=== PATIENT | female | born 1985 | race Caucasian/White ===

== ENCOUNTER 2020-04-11 14:41 | Outpatient (REF) | payer MEDICAID, SELFPAY ==
[2020-04-11 17:03] LABS: Basophils Absolute Auto 0.1 X10*3/uL (0.0-0.2); Basophils Percent Auto 0.6 % (0-2); Eosinophils Absolute Auto 0.2 X10*3/uL (0.0-0.4); Eosinophils Percent Auto 2.5 % (0-4); Hematocrit 35.7 % (37-47); Hemoglobin 11.1 g/dl (12.0-16.0); Imm Gran Abs Auto 0.05 X10*3/uL (0.00-0.03); Imm Gran Pct Auto 0.6 % (0.0-0.4); Lymphocytes Absolute Auto 2.7 X10*3/uL (1.2-4.9); MANUAL DIFF FLAG NO; Mean Corpuscular HGB Conc 31.1 g/dl (31.0-35.0); Mean Corpuscular Volume 80.4 fL (80-98); Mean Platelet Volume 10.1 fL (9.4-12.3); Monocytes Absolute Auto 0.7 X10*3/uL (0.1-1.2); Monocytes Percent Auto 7.9 % (2-11); Neutrophils Absolute Auto 5.3 X10*3/uL (2.0-8.3); Neutrophils Percent Auto 58.4 % (45-73); Platelet Count 376 X10*3/uL (160-400); Red Blood Count 4.44 X10*6/uL (4.20-5.50)
[2020-04-11 17:43] LABS: TSH reflex Free T4 1.72 mIU/mL (0.32-4.0)
[2020-04-12 10:59] LABS: CT PCR NOT DETECTED (Not Detect.); NG PCR NOT DETECTED (Not Detect.)
[2020-04-12 12:19] LABS: BV Int Neg Control Negative (Negative); BV Int Pos Control Positive (Positive)
== END 2020-04-11 14:42 | disposition home or self-care (01) ==
LOC: HO.LAB 14:41
PROVIDERS: PCP Internal Medicine; Visit Provider Obstetrics & Gynecology
DX: N93.9 Abnormal uterine and vaginal bleeding, unspecified (principal)
CPT/HCPCS: 36415; 84443; 85025; 87480; 87491; 87510; 87591; 87660; 88305; 99214; 99215

== ENCOUNTER → 2020-04-25 11:06 | Outpatient (BNVA) | payer MEDICAID, SELFPAY | PROVIDERS: Visit Provider Obstetrics & Gynecology | DX: N93.9 Abnormal uterine and vaginal bleeding, unspecified (principal); D64.9 Anemia, unspecified; Z98.890 Other specified postprocedural states | CPT/HCPCS: 99213 ==

== ENCOUNTER 2020-08-13 20:17 | Emergency (ER) | payer MEDICAID, SELFPAY ==
--- NOTE | 2020-08-13 | ECG_ITS ---
Test Reason : CP Blood Pressure : / mmHG Vent. Rate : 099 BPM Atrial Rate : 099 BPM P-R Int : 164 ms QRS Dur : 084 ms QT Int : 362 ms P-R-T Axes : 045 049 028 degrees QTc Int : 464 ms Normal sinus rhythm Normal ECG When compared with ECG of 05-JUL-2019 16:34, No significant change was found Referred By: Generic ED Physician Electronically Signed By:Ricardo Samano
--- NOTE | ~2020-08-13 | XR_ITS ---
EXAMINATION: XR CHEST CLINICAL INFORMATION: Shortness of breath, chest pressure. COMPARISON: Chest radiograph dated 07/05/2019. TECHNIQUE: Frontal view of the chest was obtained. FINDINGS: The lungs are clear. The cardiomediastinal silhouette is normal in size. There is no pleural effusion or pneumothorax. No acute osseous abnormality. XR/XR chest 1V IMPRESSION: No acute cardiopulmonary findings.
--- NOTE | 2020-08-13 20:22 | ED.URI ---
HPI - URI/Sore Throat General Chief Complaint: Dyspnea Stated Complaint: Covid Symptoms Source: patient Mode of arrival: ambulatory Limitations: no limitations History of Present Illness HPI Narrative: 35-year-old female with past medical history of asthma presents with 3 days of upper respiratory symptoms and 1 day of chest tightness and pressure. She states to have a cough, malaise, the subjective fevers, chills, and wheezing. MD elicited complaint: fever, cough and nasal congestion Pertinent past history: asthma Onset (ago): day(s) (3) Consistency: constant Severity: moderate Description of mucous: clear Able to tolerate fluids by mouth: Yes Exacerbating factors: exertion and deep breaths Relieving factors: nothing Associated symptoms: fever, chills, myalgias, headache, rhinorrhea, nasal congestion and cough Related Data Home Medications Medication Instructions Recorded Confirmed albuterol sulfate 90 mcg/actuation 2 puff INHALATION Q4-6H PRN 04/11/20 aerosol inhaler ibuprofen 800 mg tablet 800 mg PO TID 04/11/20 Previous Rx's Medication Instructions Recorded azithromycin 250 mg PO DAILY 4 Days #4 tab 08/13/20 Allergies Allergy/AdvReac Type Severity Reaction Status Date / Time banana [BANANA] Allergy Severe ANAPHYLAXIS Verified 04/11/20 14:48 mathew Allergy Severe ANAPHYLAXIS Verified 04/11/20 14:48 peach [PEACH] Allergy Severe ANAPHYLAXIS Verified 04/11/20 14:48 walnut [WALNUT] Allergy Severe ANAPHYLAXIS Verified 04/11/20 14:48 cat dander Allergy Unknown Hives Verified 04/11/20 14:48 Review of Systems Review of Systems: Constitutional: positive Fever, positive Chills, positive fatigue, positive Malaise ENT/Mouth: No sore throat, no runny nose Eyes: No Discharge Cardiovascular: Positive Chest Pain, No SOB Respiratory: Positive Cough, No Sputum, positive Wheezing, No Smoke Exposure, No Dyspnea Gastrointestinal: No Nausea, No Vomiting, No Diarrhea Genitourinary: no irregular bleeding, No Dysuria, No Urinary Frequency, No Hematuria, No Urinary Incontinence, No Urgency, No Flank Pain, Musculoskeletal: positive Myalgia Skin: No rash Neuro: Positive Headache Yes all other systems are reviewed and are negative PMFSH Past Medical History Attestation statement: The following information was validated with the patient. Source: old records reviewed Medical History History of ectopic Surgical History History of ovarian cystectomy Hx of section Hx of dilation and curettage Family History Family History Father History of colon cancer Hx of glaucoma Mother Hypertension Hx of chronic arthritis Maternal Grandmother Hx of human immunodeficiency virus infection Maternal Grandfather Hx of cardiovascular disorder Paternal Grandmother Hx of chronic arthritis History of anemia Social History Social History Alcohol intake: current Alcohol intake frequency: a few times a month Smoking Status: Never smoker Smoked in Last 30 Days: No Use of substances other than those prescribed or required for medical reasons: No Advance Directives: No Advance Directives Information Provided: No Gender identity: female Physical Exam Vital Signs: Vital Signs: Last Vital Signs Temp 97.8 F 08/13/20 20:29 Pulse 88 08/13/20 22:00 Resp 18 08/13/20 22:00 BP 131/68 08/13/20 22:00 Pulse Ox 100 08/13/20 22:00 Body Mass Index 34.3 Appearance: Alert. Oriented X3. Mild distress. Appears fatigued Eyes: Pupils equal, round and reactive to light. ENT: Pharynx normal. Neck: Normal inspection. Neck supple. CVS: Tachycardic heart rate and rhythm. Pulses normal. Respiratory: No respiratory distress. Breath sounds normal. Abdomen: Soft and nontender. Skin: Skin warm and dry. Normal skin color. Normal skin turgor. Extremities: No lower extremity edema. Neuro: No motor deficit. No sensory deficit. Course Course Course Narrative: 35-year-old female with past medical history of asthma presents with 3 days of upper respiratory symptoms and 1 day of chest tightness and pressure. Plan of care ACS rule out chest x-ray, COVID-19 testing. At 9:12 p.m. H&H 10.8/35.7 which is consistent with prior lab values dating back to 2019. Re-evaluation at 10:00 p.m.. Patient updated on all lab values and negative COVID test. Patient does have a history of asthma, recurrent bronchitis, plan to treat with azithromycin. Patient verbalized understanding of and agrees to plan of care discharge home MDM - URI/Sore Throat Differential Diagnosis Differential diagnosis: Likely upper respiratory infection, viral infection, bronchitis and influenza Medical Records Attestation: I reviewed the patient's medical records. Lab Data Attestation: I reviewed the patient's lab results. Result diagrams: 08/13/20 20:50 08/13/20 20:50 Labs: Lab Results 08/13/20 08/13/20 08/13/20 Range/Units 20:43 20:50 20:50 WBC 10.3 (4.8-10.8) X10*3/uL RBC 4.57 (4.20-5.50) X10*6/uL Hgb 10.8 L (12.0-16.0) g/dl Hct 35.7 L (37-47) % MCV 78.1 L (80-98) fL MCH 23.6 L (27.0-33.0) pg MCHC 30.3 L (31.0-35.0) g/dl RDW 14.6 (11.0-16.0) % Plt Count 329 (160-400) X10*3/uL MPV 9.4 (9.4-12.3) fL Immature Gran % (Auto) 0.5 H (0.0-0.4) % Neut % (Auto) 65.1 (45-73) % Lymph % (Auto) 23.3 (20-40) % [place] % (Auto) 8.6 (2-11) % Eos % (Auto) 2.2 (0-4) % Baso % (Auto) 0.3 (0-2) % Lymph # (Auto) 2.4 (1.2-4.9) X10*3/uL [place] # (Auto) 0.9 (0.1-1.2) X10*3/uL Eos # (Auto) 0.2 (0.0-0.4) X10*3/uL Baso # (Auto) 0.0 (0.0-0.2) X10*3/uL Abs Immat Gran (auto) 0.05 H (0.00-0.03) X10*3/uL Absolute Neuts (auto) 6.7 (2.0-8.3) X10*3/uL Absolute Nucleated RBC 0.000 (0.0-0.012) X10*3/uL Nucleated RBC % (auto) 0.0 (0.0-0.2) /100WBC PT 12.8 (10.8-13.0) SEC INR 1.1 (0.9-1.1) APTT 36.8 (24.1-38.0) SEC Sodium (135-145) mmol/L Potassium (3.3-5.1) mmol/L Chloride (96-108) mmol/L Carbon Dioxide (22-29) mmol/L Anion Gap (12-20) BUN (9-16) mg/dL Creatinine (0.5-1.4) mg/dL Estim Creat Clear Calc Estimated GFR Random Glucose (60-115) mg/dL Calcium (8.4-10.2) mg/dL Troponin I High Sens (<3.5-17.0) ng/L Coronavirus (PCR) NEGATIVE (Negative) Influenza Type A (PCR) NEGATIVE (Negative) Influenza Type B (PCR) NEGATIVE (Negative) RSV RNA Qual (PCR) NEGATIVE (Negative) 08/13/20 08/13/20 Range/Units 20:50 20:50 WBC (4.8-10.8) X10*3/uL RBC (4.20-5.50) X10*6/uL Hgb (12.0-16.0) g/dl Hct (37-47) % MCV (80-98) fL MCH (27.0-33.0) pg MCHC (31.0-35.0) g/dl RDW (11.0-16.0) % Plt Count (160-400) X10*3/uL MPV (9.4-12.3) fL Immature Gran % (Auto) (0.0-0.4) % Neut % (Auto) (45-73) % Lymph % (Auto) (20-40) % [place] % (Auto) (2-11) % Eos % (Auto) (0-4) % Baso % (Auto) (0-2) % Lymph # (Auto) (1.2-4.9) X10*3/uL [place] # (Auto) (0.1-1.2) X10*3/uL Eos # (Auto) (0.0-0.4) X10*3/uL Baso # (Auto) (0.0-0.2) X10*3/uL Abs Immat Gran (auto) (0.00-0.03) X10*3/uL Absolute Neuts (auto) (2.0-8.3) X10*3/uL Absolute Nucleated RBC (0.0-0.012) X10*3/uL Nucleated RBC % (auto) (0.0-0.2) /100WBC PT (10.8-13.0) SEC INR (0.9-1.1) APTT (24.1-38.0) SEC Sodium 138 (135-145) mmol/L Potassium 3.8 (3.3-5.1) mmol/L Chloride 104 (96-108) mmol/L Carbon Dioxide 26 (22-29) mmol/L Anion Gap 12 (12-20) BUN 7 L (9-16) mg/dL Creatinine 0.70 (0.5-1.4) mg/dL Estim Creat Clear Calc 121.2 Estimated GFR > 60 Random Glucose 94 (60-115) mg/dL Calcium 8.6 (8.4-10.2) mg/dL Troponin I High Sens < 3.5 (<3.5-17.0) ng/L Coronavirus (PCR) (Negative) Influenza Type A (PCR) (Negative) Influenza Type B (PCR) (Negative) RSV RNA Qual (PCR) (Negative) Imaging Data Chest x-ray: Attestation: I personally reviewed and interpreted this imaging study as follows: Radiologist's impression: EXAMINATION: XR CHEST CLINICAL INFORMATION: Shortness of breath, chest pressure. COMPARISON: Chest radiograph dated 07/05/2019. TECHNIQUE: Frontal view of the chest was obtained. FINDINGS: The lungs are clear. The cardiomediastinal silhouette is normal in size. There is no pleural effusion or pneumothorax. No acute osseous abnormality. XR/XR chest 1V IMPRESSION: No acute cardiopulmonary findings. ECG Data Attestation: I personally reviewed and interpreted this ECG as follows: ECG interpretation date: 08/13/20 ECG interpretation time: 20:26 Prior ECG tracings: available for review Interpretation: Vent. rate 101 BPM NV interval 160 ms QRS duration 90 ms QT/QTc 348/451 ms P-R-T axes 57 -2 43 Normal sinus rhythm Normal ECG When compared with ECG of 05-JUL-2019 16:34, No significant change was found Discharge Plan Discharge Clinical Impression: URI (upper respiratory infection) Qualifiers: URI type: unspecified URI Qualified Code(s): J06.9 - Acute upper respiratory infection, unspecified Patient Disposition: Home, Self-Care Instructions: Upper Respiratory Infection (ED) Additional Instructions: You were evaluated for upper respiratory symptoms. Your COVID-19 test was negative. Chest x-ray was negative for acute findings requiring emergent intervention. Please continue to take azithromycin as prescribed. Take Tylenol and Motrin as needed for pain management and fever control. Thank you for choosing this emergency department for evaluation. Please follow-up with primary care physician as needed. Return to the emergency department for any new, concerning, or worsening symptoms. Prescriptions: New azithromycin 250 mg tablet 250 mg PO DAILY 4 Days Qty: 4 RF: 0
[2020-08-13 20:29] VITALS: BP 142/87; PULSE 96; RESP 18; TEMP 36.6; O2SAT 100; BMI 34.3
[2020-08-13 20:56] LABS: MANUAL DIFF FLAG NO
[2020-08-13 20:57] LABS: Basophils Percent Auto 0.3 % (0-2); Eosinophils Absolute Auto 0.2 X10*3/uL (0.0-0.4); Eosinophils Percent Auto 2.2 % (0-4); Hematocrit 35.7 % (37-47); Hemoglobin 10.8 g/dl (12.0-16.0); Imm Gran Abs Auto 0.05 X10*3/uL (0.00-0.03); Imm Gran Pct Auto 0.5 % (0.0-0.4); Lymphocytes Absolute Auto 2.4 X10*3/uL (1.2-4.9); Lymphocytes Percent Auto 23.3 % (20-40); Mean Corpuscular HGB Conc 30.3 g/dl (31.0-35.0); Mean Corpuscular Hemoglobin 23.6 pg (27.0-33.0); Mean Corpuscular Volume 78.1 fL (80-98); Mean Platelet Volume 9.4 fL (9.4-12.3); Monocytes Absolute Auto 0.9 X10*3/uL (0.1-1.2); Monocytes Percent Auto 8.6 % (2-11); Neutrophils Absolute Auto 6.7 X10*3/uL (2.0-8.3); Neutrophils Percent Auto 65.1 % (45-73); Platelet Count 329 X10*3/uL (160-400); Red Blood Count 4.57 X10*6/uL (4.20-5.50); Red Cell Distribution Width 14.6 % (11.0-16.0); White Blood Count 10.3 X10*3/uL (4.8-10.8)
[2020-08-13 21:07] LABS: INTERNATIONAL NORM RATIO 1.1 (0.9-1.1); Prothrombin Time 12.8 SEC (10.8-13.0)
[2020-08-13 21:09] LABS: Partial Thromboplastin Time 36.8 SEC (24.1-38.0)
[2020-08-13 21:16] LABS: Anion Gap 12 (12-20); Blood Urea Nitrogen 7 mg/dL (9-16); Calcium 8.6 mg/dL (8.4-10.2); Carbon Dioxide 26 mmol/L (22-29); Chloride 104 mmol/L (96-108); Creatinine Clr Calc Pharmacy 121.2; Estimated Glomerular Filt Rate > 60; Glucose Random 94 mg/dL (60-115); Potassium 3.8 mmol/L (3.3-5.1); Sodium 138 mmol/L (135-145)
[2020-08-13 21:22] LABS: Troponin-I High Sensitivity < 3.5 ng/L (<3.5-17.0)
[2020-08-13 21:41] LABS: Influenza A PCR NEGATIVE (Negative); Influenza B PCR NEGATIVE (Negative); Resp Syncy Virus RNA Qual PCR NEGATIVE (Negative); SARS COV2 PCR INHOUSE NEGATIVE (Negative)
[2020-08-13 22:00] VITALS: BP 131/68; PULSE 88; RESP 18; O2SAT 100
[2020-08-13] MEDS: Azithromycin 500 MG TABLET PO (22:29)
== END 2020-08-13 22:37 | disposition home or self-care (01) ==
PROVIDERS: Nurse Practitioner Family; Emergency Provider Emergency Medicine
DX: J06.9 Acute upper respiratory infection, unspecified (principal); R06.00 Dyspnea, unspecified; R50.9 Fever, unspecified; R05 Cough; R51.9 Headache, unspecified; Z20.822 Contact with and (suspected) exposure to COVID-19; Z79.899 Other long term (current) drug therapy
CPT/HCPCS: 0241U; 36415; 71045; 80048; 84484; 85025; 85610; 85730; 93005; 99283; 99284

== ENCOUNTER 2020-11-30 13:04 | Outpatient (REF) | payer MEDICAID, SELFPAY ==
--- NOTE | ~2020-11-30 | US_ITS ---
EXAMINATION: US PELVIS COMPLETE US PELVIS TRANSVAGINAL CLINICAL INFORMATION: Abnormal bleeding. LMP 11/12/2020. COMPARISON: Most recent pelvic ultrasound dated 06/03/2016. TECHNIQUE: Transabdominal and transvaginal imaging were performed. FINDINGS: The uterus is of normal size and echogenicity measuring 8.2 x 4.1 x 5.6 cm. A regular homogeneous endometrium is identified measuring 0.9 cm. The right ovary measures 5.6 x 4.5 x 9.1 cm for a volume of 119.9 mL. There is a complex right adnexal cyst with both cystic and solid components measuring 3.2 x 2.2 x 3.5 cm. A similar-appearing cyst was seen on the ultrasound from 2015 measuring 2.9 x 2.6 x 2.7 cm. An additional, simple-appearing cyst is seen within the right adnexa measuring 3.6 x 3.2 x 3.7 cm. Findings may represent an exophytic right ovarian cyst. The left ovary is seen immediately adjacent to this cyst and a left ovarian origin could be considered. The left ovary measures 3.7 x 2.4 x 2.6 cm for a volume of 12.1 mL. There is no pelvic free fluid. US/US transvaginal IMPRESSION: 1. Complex right ovarian cyst with cystic and solid components measuring up to 3.5 cm. A similar-appearing complex cyst was seen on the pelvic ultrasound dated 2015 measuring up to 2.9 cm. 2. Additional simple-appearing cyst in the right adnexa measuring up to 3.7 cm. This appears to abut the left ovary and may represent either a simple right or left ovarian cyst. 3. Sonographically unremarkable uterus and endometrium.
--- NOTE | ~2020-11-30 | US_ITS ---
EXAMINATION: US PELVIS COMPLETE US PELVIS TRANSVAGINAL CLINICAL INFORMATION: Abnormal bleeding. LMP 11/12/2020. COMPARISON: Most recent pelvic ultrasound dated 06/03/2016. TECHNIQUE: Transabdominal and transvaginal imaging were performed. FINDINGS: The uterus is of normal size and echogenicity measuring 8.2 x 4.1 x 5.6 cm. A regular homogeneous endometrium is identified measuring 0.9 cm. The right ovary measures 5.6 x 4.5 x 9.1 cm for a volume of 119.9 mL. There is a complex right adnexal cyst with both cystic and solid components measuring 3.2 x 2.2 x 3.5 cm. A similar-appearing cyst was seen on the ultrasound from 2015 measuring 2.9 x 2.6 x 2.7 cm. An additional, simple-appearing cyst is seen within the right adnexa measuring 3.6 x 3.2 x 3.7 cm. Findings may represent an exophytic right ovarian cyst. The left ovary is seen immediately adjacent to this cyst and a left ovarian origin could be considered. The left ovary measures 3.7 x 2.4 x 2.6 cm for a volume of 12.1 mL. There is no pelvic free fluid. US/US pelvic complete IMPRESSION: 1. Complex right ovarian cyst with cystic and solid components measuring up to 3.5 cm. A similar-appearing complex cyst was seen on the pelvic ultrasound dated 2015 measuring up to 2.9 cm. 2. Additional simple-appearing cyst in the right adnexa measuring up to 3.7 cm. This appears to abut the left ovary and may represent either a simple right or left ovarian cyst. 3. Sonographically unremarkable uterus and endometrium.
== END 2020-11-30 13:05 | disposition home or self-care (01) ==
LOC: HO.US 13:04
PROVIDERS: PCP Internal Medicine; Visit Provider Obstetrics & Gynecology
DX: N93.9 Abnormal uterine and vaginal bleeding, unspecified (principal)
CPT/HCPCS: 76830; 76856

== ENCOUNTER → 2020-12-06 10:51 | Outpatient (BNVA) | payer MEDICAID, SELFPAY | PROVIDERS: PCP Internal Medicine; Visit Provider Obstetrics & Gynecology ==

== ENCOUNTER 2020-12-13 13:24 | Outpatient (REF) | payer MEDICAID, SELFPAY ==
--- NOTE | ~2020-12-13 | MR_ITS ---
EXAMINATION: MR PELVIS WITHOUT AND WITH CONTRAST CLINICAL INFORMATION: Right ovarian cyst. COMPARISON: Previous pelvic ultrasound exams, most recent 11/30/2020 TECHNIQUE: Sagittal, axial and coronal sequences through the pelvis were performed with and without contrast. The patient received 10 mL intravenous gadolinium contrast. FINDINGS: The uterus appears slightly anteverted and retroflexed and measures 10 x 4.6 x 6 cm in sagittal, AP and transverse dimension. No focal uterine lesion is seen. Endometrial thickness is normal measuring 1 cm. The junctional zone does not appear thickened. There are small nabothian cysts in the cervix. The cervix is otherwise unremarkable. Both ovaries are superior to the uterus. There is a 3.4 x 3.2 x 3.6 cm simple left ovarian cyst. This is exophytic and superior medial to the left ovary and extends toward the midline. There are 2 right ovarian cysts. There is a 3.3 x 3.4 cm right adnexal cyst. This is low signal on T1-weighted sequences, primarily high signal on T2-weighted sequences with small medial area of low signal wall irregularity appreciated on T2-weighted sequences and demonstrates no evidence of enhancement. This is medial and superior to the right ovary and extends toward the midline. The area of wall irregularity appears smaller than expected compared to previous ultrasound. There is a 1.8 x 2 x 2 cm simple more superior right adnexal cyst. There areas of signal loss seen in the lower anterior abdominal wall and along the anterior wall of the uterus probably related to previous surgery, probably a section. Bladder is normal. No ascites or adenopathy is seen. Visualized bowel is normal. There is degenerative disc disease at L5-S1. MR/MR pelvis wo/w con IMPRESSION: Both ovaries are high in the pelvis superior to the uterus. There are bilateral adnexal cysts, 2 on the right and 1 on the left. Two cysts represent simple cysts. The third cyst represents a minimally complex cyst with area of low signal adjacent to the medial wall and no evidence of enhancement. The area of wall irregularity appears smaller than seen on prior ultrasound 11/30/2020.
[2020-12-13 16:08] LABS: Blood Urea Nitrogen 13 mg/dL (9-16); Estimated Glomerular Filt Rate > 60
[2020-12-13 16:17] LABS: HCG Quantitative < 2 mIU/mL
[2020-12-14 10:36] LABS: CA-125 38 U/mL (<35)
[2020-12-15 13:47] LABS: Alpha Fetoprotein 4.1 ng/mL
== END 2020-12-13 13:25 | disposition home or self-care (01) ==
LOC: HO.MRI 13:24
PROVIDERS: PCP Internal Medicine; Referring Provider Obstetrics & Gynecology; Visit Provider Obstetrics & Gynecology
DX: N83.291 Other ovarian cyst, right side (principal)
CPT/HCPCS: 36415; 72197; 82105; 82565; 84520; 84702; 86304; A9585

== ENCOUNTER → 2020-12-27 09:29 | Outpatient (BNVA) | payer MEDICAID, SELFPAY | PROVIDERS: Visit Provider Obstetrics & Gynecology | DX: N83.291 Other ovarian cyst, right side (principal); N93.9 Abnormal uterine and vaginal bleeding, unspecified | CPT/HCPCS: 99212 ==

== ENCOUNTER 2022-02-25 10:57 | Emergency (ER) | payer MEDICAID, SELFPAY ==
--- NOTE | ~2022-02-25 | XR_ITS ---
EXAMINATION: XR CHEST CLINICAL INFORMATION: Pleuritic chest pain, cough. COMPARISON: Chest radiograph 08/13/2020. TECHNIQUE: Frontal view of the chest was obtained. FINDINGS: No significant abnormality is noted involving the heart, lungs, mediastinum, bony thorax or soft tissues. XR/XR chest 1V IMPRESSION: Unremarkable examination.
[2022-02-25 11:00] VITALS: BP 122/73; PULSE 100; RESP 18; TEMP 35.9; O2SAT 98; BMI 34.6
--- NOTE | 2022-02-25 11:02 | ECG_ITS ---
Test Reason : chest pain Blood Pressure : / mmHG Vent. Rate : 099 BPM Atrial Rate : 099 BPM P-R Int : 162 ms QRS Dur : 080 ms QT Int : 356 ms P-R-T Axes : 019 030 013 degrees QTc Int : 456 ms Normal sinus rhythm Normal ECG When compared with ECG of 13-AUG-2020 20:26, No significant change was found Referred By: Generic ED Physician Electronically Signed By:ELI RHODES
[2022-02-25 11:11] LABS: MANUAL DIFF FLAG NO
[2022-02-25 11:13] LABS: Basophils Percent Auto 0.3 % (0-2); Eosinophils Absolute Auto 0.1 X10*3/uL (0.0-0.4); Eosinophils Percent Auto 1.3 % (0-4); Hematocrit 36.6 % (37.0-47.0); Hemoglobin 11.9 g/dl (12.0-16.0); Imm Gran Abs Auto 0.05 X10*3/uL (0.00-0.03); Imm Gran Pct Auto 0.6 % (0.0-0.4); Lymphocytes Percent Auto 22.9 % (20-40); Mean Corpuscular HGB Conc 32.5 g/dl (31.0-35.0); Mean Corpuscular Hemoglobin 26.2 pg (27.0-33.0); Mean Corpuscular Volume 80.6 fL (80.0-98.0); Mean Platelet Volume 9.4 fL (9.4-12.3); Monocytes Absolute Auto 0.7 X10*3/uL (0.1-1.2); Monocytes Percent Auto 8.3 % (2-11); Neutrophils Absolute Auto 5.7 x10*3/uL (2.0-8.3); Neutrophils Percent Auto 66.6 % (45-73); Platelet Count 245 X10*3/uL (160-400); Red Blood Count 4.54 X10*6/uL (4.20-5.50); Red Cell Distribution Width 13.6 % (11.0-16.0); White Blood Count 8.6 X10*3/uL (4.8-10.8)
[2022-02-25 11:21] LABS: COVID-19 Test Positive (Negative)
[2022-02-25 11:35] LABS: Alanine Aminotransferase 18 U/L (0-31); Albumin Level 4.3 g/dL (3.5-5.0); Alkaline Phosphatase 60 U/L (39-117); Anion Gap 15 (12-20); Aspartate Amino Transferase 15 U/L (5-31); Bilirubin Total 0.5 mg/dL (0.0-1.0); Blood Urea Nitrogen 11 mg/dL (9-16); Calcium 8.7 mg/dL (8.4-10.2); Carbon Dioxide 23 mmol/L (22-29); Chloride 105 mmol/L (96-108); Creatinine Clr Calc Pharmacy 115.4; Estimated Glomerular Filt Rate > 60; Glucose Random 112 mg/dL (60-115); Potassium 3.8 mmol/L (3.3-5.1); Sodium 139 mmol/L (135-145); Total Protein 7.4 g/dL (6.5-8.0)
--- NOTE | 2022-02-25 11:41 | ED.GENADULT ---
HPI - General Adult General Chief complaint: Dyspnea Stated complaint: COVID+/Difficulty breathing Time Seen by Provider: 02/25/22 11:42 Source: patient Mode of arrival: ambulatory Limitations: no limitations History of Present Illness HPI narrative: Patient is a 37 year old female presenting to the emergency department today with COVID-19 and shortness of breath. Patient states that she tested positive on a home test yesterday and feels like today she is somewhat more short of breath. Patient states that she has a history of asthma but is not currently on any medications for it. Patient denies any dizziness, lightheadedness, abdominal pain, nausea, vomiting, fever, chills, blurry vision, double vision, loss of vision, chest pain, back pain, night sweats, pain with urination, increased urinary frequency, increased urinary urgency, blood in her urine or stool, syncope or a near syncopal episode, recent trauma or falls, bowel incontinence, bladder incontinence, bowel retention, bladder retention, or any other complaints at this time. Onset (ago): day(s) (1) Severity: mild Severity scale (1-10): 3 Relieving factors: none Exacerbating factors: none Associated symptoms: shortness of breath Treatments prior to arrival: none Related Data Home Medications Medication Instructions Recorded Confirmed albuterol sulfate 90 mcg/actuation 2 puff inhalation Q4-6H PRN 04/11/20 aerosol inhaler (ProAir HFA) ibuprofen 800 mg tablet 800 mg PO TID 04/11/20 Previous Rx's Medication Instructions Recorded albuterol sulfate 90 mcg/actuation 1 inh inhalation QID PRN shortness 02/25/22 aerosol inhaler of breath or wheezing #6.7 grams prednisone 20 mg tablet 20 mg PO DAILY 12 days #26 tabs 02/25/22 Allergies Allergy/AdvReac Type Severity Reaction Status Date / Time banana [BANANA] Allergy Severe ANAPHYLAXIS Verified 12/27/20 09:37 mathew Allergy Severe ANAPHYLAXIS Verified 12/27/20 09:37 peach [PEACH] Allergy Severe ANAPHYLAXIS Verified 12/27/20 09:37 walnut [WALNUT] Allergy Severe ANAPHYLAXIS Verified 12/27/20 09:37 cat dander Allergy Unknown Hives Verified 12/27/20 09:37 Review of Systems Constitutional: Constitutional: Reports no additional constitutional complaints, Denies chills, Denies fever(s) and Denies night sweats Eyes: Eyes: Reports no additional eye complaints, Denies blurry vision, Denies change in vision, Denies diplopia, Denies eye discharge, Denies loss of vision and Denies eye pain ENT: Denies dizziness Cardiovascular: Cardiovascular: Reports no additional cardiovascular complaints, Denies chest pain, Denies lightheadedness, Denies Loss of Consciousness and Reports dyspnea Respiratory: Respiratory: Reports no additional respiratory complaints and Reports dyspnea Gastrointestinal: Gastrointestinal: Reports no additional gastrointestinal complaints, Denies abdominal pain, Denies melena, Denies hematochezia, Denies change in bowel habits and Denies change in stool character Genitourinary: Genitourinary: Denies hematuria, Denies urinary frequency, Denies dysuria, Denies urinary incontinence, Denies urinary hesitancy and Denies urinary urgency Musculoskeletal: Musculoskeletal: Reports no additional musculoskeletal complaints, Denies numbness and Denies tingling Neurologic: Denies dizziness, Denies loss of vision, Denies numbness and Denies tingling Psychiatric: Psychiatric: Reports no additional psychiatric complaints Endocrine: Endocrine: Reports no additional endocrine complaints Hematologic/Lymphatic: Hematologic/Lymphatic: Reports no additional hematologic/lymphatic complaints Allergic/Immunologic: Allergic/Immunologic: Reports no additional allergic/immunologic complaints FOR[facility], [facility] Past Medical History Attestation statement: The following information was validated with the patient. Source: old records reviewed Medical History History of ectopic Surgical History History of ovarian cystectomy Hx of section Hx of dilation and curettage Family History Family History Father History of colon cancer Hx of glaucoma Mother Hypertension Hx of chronic arthritis Maternal Grandmother Hx of human immunodeficiency virus infection Maternal Grandfather Hx of cardiovascular disorder Paternal Grandmother Hx of chronic arthritis History of anemia Social History Social History Alcohol intake: current Alcohol intake frequency: a few times a month Patient Tobacco Use Status: Never used Tobacco Advance Directives: No Advance Directives Information Provided: Yes Gender identity: Female Physical Exam ED Vital Signs: Vital Signs - 24 hr 08/29/22 11:00 Temperature 96.7 F L Pulse Rate 100 Respiratory Rate 18 Blood Pressure 122/73 Pulse Oximetry 98 Oxygen Delivery Method Room Air BMI result Body Mass Index 34.6 Const General: cooperative, no acute distress, alert and awake Nutritional Appearance: well nourished Orientation/consciousness: patient oriented x3 Limitations: no limitations HENMT Head: Yes normal to inspection and Yes atraumatic Ears: hearing grossly normal bilaterally and external ears normal General nose exam: Normal external nose present, no nasal discharge noted and no epistaxis Face and sinus: Yes normal facial exam, No abrasion and No laceration Mouth: Normal oral and palatal mucosa present, no drooling and no muffled voice Eyes General: appearance normal, both eyes and all related structures Periorbital: periorbital findings normal Eyelids: Yes eyelids normal Conjunctivae: conjunctivae normal Pupils: Equal, round and reactive pupils present EOM: EOMs intact bilaterally Neck Neck: Yes normal visual inspection, Yes full ROM and Yes no lymphadenopathy Chest Chest palpation & inspection: normal inspection of the chest Resp Effort & Inspection: normal respiratory effort and able to speak in complete sentences Auscultation: clear to auscultation bilaterally Cardio Rate: regular rate Rhythm: regular rhythm GI Inspection: Yes normal to inspection Neuro General: patient oriented x3 and moves all extremities Cranial nerves: Yes Equal, round and reactive pupils present Cognition (Neuro): normal cognition Motor exam (neuro): 5/5 motor strength present throughout Sensory Exam: Normal double simultaneous stimulation for sensation Coordination: [id number] test normal Extrem General: Yes normal to inspection, Yes full ROM and Yes capillary refill normal Psych Appearance: grossly normal Mental Status: mental status grossly normal Affect: normal affect Attitude: cooperative Thought process: Normal thought process present Thought content: Normal thought content present Insight: Good insight present (Psych) Medical Decision Making MDM Narrative Medical decision making narrative: Patient is a 37 year old female presenting to the emergency department today with COVID-19 and shortness of breath. Patient's physical exam was unremarkable. Patient's blood work was unremarkable. Patient's rapid COVID-19 test was positive. Patient's EKG was unremarkable. Patient's chest x-ray showed no acute process. I explained my physical exam findings as well as all test results to the patient. I answered all questions asked by the patient. Patient received IM Solu-Medrol which she stated helped her symptoms significantly. I stressed the importance of the patient taking her medication as prescribed. I stressed the importance of the patient following up with her primary care provider. I stressed the importance of the patient returning to the emergency department immediately if her symptoms were to worsen or if she were to develop any dizziness, shortness of breath, difficulty breathing, chest pain, blurry vision, loss of vision, nausea, vomiting, abdominal pain, fever, chills, back pain, or any other complaints. Patient verbalized agreement and understanding with this treatment plan and discharge. Differential Diagnosis Differential Diagnosis: COVID-19 Medical Records Medical records reviewed: Yes I reviewed the patient's medical records. Lab Data Lab results reviewed: Yes I reviewed the patient's lab results. Result diagrams: 02/25/22 11:07 02/25/22 11:07 Labs: Lab Results 02/25/22 02/25/22 02/25/22 Range/Units 11:06 11:07 11:07 WBC 8.6 (4.8-10.8) X10*3/uL RBC 4.54 (4.20-5.50) X10*6/uL Hgb 11.9 L (12.0-16.0) g/dl Hct 36.6 L (37.0-47.0) % MCV 80.6 (80.0-98.0) fL MCH 26.2 L (27.0-33.0) pg MCHC 32.5 (31.0-35.0) g/dl RDW 13.6 (11.0-16.0) % Plt Count 245 (160-400) X10*3/uL MPV 9.4 (9.4-12.3) fL Immature Gran % (Auto) 0.6 H (0.0-0.4) % Neut % (Auto) 66.6 (45-73) % Lymph % (Auto) 22.9 (20-40) % [place] % (Auto) 8.3 (2-11) % Eos % (Auto) 1.3 (0-4) % Baso % (Auto) 0.3 (0-2) % Lymph # (Auto) 2.0 (1.2-4.9) X10*3/uL [place] # (Auto) 0.7 (0.1-1.2) X10*3/uL Eos # (Auto) 0.1 (0.0-0.4) X10*3/uL Baso # (Auto) 0.0 (0.0-0.2) X10*3/uL Abs Immat Gran (auto) 0.05 H (0.00-0.03) X10*3/uL Absolute Neuts (auto) 5.7 (2.0-8.3) x10*3/uL Absolute Nucleated RBC 0.000 (0.0-0.012) X10*3/uL Nucleated RBC % (auto) 0.0 (0.0-0.2) /100WBC Sodium 139 (135-145) mmol/L Potassium 3.8 (3.3-5.1) mmol/L Chloride 105 (96-108) mmol/L Carbon Dioxide 23 (22-29) mmol/L Anion Gap 15 (12-20) BUN 11 (9-16) mg/dL Creatinine 0.75 (0.5-1.4) mg/dL Estim Creat Clear Calc 115.4 Estimated GFR > 60 Random Glucose 112 (60-115) mg/dL Calcium 8.7 (8.4-10.2) mg/dL Total Bilirubin 0.5 (0.0-1.0) mg/dL AST 15 (5-31) U/L ALT 18 (0-31) U/L Alkaline Phosphatase 60 (39-117) U/L Total Protein 7.4 (6.5-8.0) g/dL Albumin 4.3 (3.5-5.0) g/dL COVID-19 (KAREN) Positive A (Negative) COVID-19 Clin Com See Note Imaging Data Chest x-ray: Attestation: I personally reviewed and interpreted this imaging study as follows: My impression: No acute process. Radiologist's impression: EXAMINATION: XR CHEST CLINICAL INFORMATION: Pleuritic chest pain, cough. COMPARISON: Chest radiograph 08/13/2020. TECHNIQUE: Frontal view of the chest was obtained. FINDINGS: No significant abnormality is noted involving the heart, lungs, mediastinum, bony thorax or soft tissues. XR/XR chest 1V IMPRESSION: Unremarkable examination. Dictated By: Nhung Barriga Signed By: Electronically signed by Denia 08/29/22 1243 ECG Data Attestation: I personally reviewed and interpreted this ECG as follows: Prior ECG tracings: available for review Interpretation: Vent. Rate: 099 BPM ? ? Atrial Rate: 099 BPM P-R Int: 162 ms? QRS Dur: 080 ms QT Int: 356 ms ? ? ? P-R-T Axes: 019 030 013 degrees QTc Int: 456 ms ? Normal sinus rhythm Normal ECG When compared with ECG of 13-AUG-2020 20:26, No significant change was found DD/ 1111 Discharge Plan Discharge Clinical Impression: COVID-19 Patient Disposition: Home, Self-Care Instructions: COVID-19 (Coronavirus Disease 2019) (ED) Additional Instructions: Follow up with your primary care provider. Return to the emergency department immediately if your symptoms worsen or if you develop any dizziness, shortness of breath, difficulty breathing, chest pain, blurry vision, loss of vision, nausea, vomiting, abdominal pain, fever, chills, back pain, or any other complaints. Prescriptions: New prednisone 20 mg tablet 20 mg PO DAILY 12 Days Qty: 26 0RF Rx Instructions: Take 3 tablets for 5 days THEN; Take 2 tablets for 4 days THEN; Take 1 tablet for 3 days albuterol sulfate 90 mcg/actuation HFA aerosol inhaler 1 inh inhalation QID PRN (Reason: shortness of breath or wheezing) Qty: 6.7 0RF No Action albuterol sulfate [ProAir HFA] 90 mcg/actuation HFA aerosol inhaler 2 puff inhalation Q4-6H PRN ibuprofen 800 mg tablet 800 mg PO TID Referrals: Miriam Petty MD [Primary Care Provider] - Stand Alone Forms: Work/School Release Discharge Date/Time: 02/25/22 13:39 Print Language: Hebrew
[2022-02-25] MEDS: methylPREDNISolone Sod Succ 125 MG/2 ML VIAL 60 MG IM (12:54)
== END 2022-02-25 13:39 | disposition home or self-care (01) ==
PROVIDERS: Emergency Provider Emergency Medicine; PCP Internal Medicine
DX: U07.1 COVID-19 (principal); R06.02 Shortness of breath
CPT/HCPCS: 71045; 80053; 85025; 87635; 93005; 96372; 99281; 99284; J2930

== ENCOUNTER 2023-04-25 15:15 | Outpatient (REF) | payer MEDICAID, SELFPAY ==
[2023-04-25 16:22] LABS: Estimated Average Glucose 120 mg/dL; Hemoglobin A1c % 5.8 % (<6.0)
[2023-04-25 16:56] LABS: Alanine Aminotransferase 29 U/L (0-31); Albumin Level 4.4 g/dL (3.5-5.0); Alkaline Phosphatase 58 U/L (39-117); Anion Gap 12 (12-20); Aspartate Amino Transferase 23 U/L (5-31); Bilirubin Direct 0.1 mg/dL (0.0-0.5); Bilirubin Total 0.3 mg/dL (0.0-1.0); Blood Urea Nitrogen 8 mg/dL (9-16); Calcium 9.4 mg/dL (8.4-10.2); Carbon Dioxide 26 mmol/L (22-29); Chloride 105 mmol/L (96-108); Cholesterol 261 mg/dL (<200); Estimated Glomerular Filt Rate > 60; Glucose Random 95 mg/dL (60-115); HDL Cholesterol 42 mg/dL (>40); LDL Cholesterol Calculated 181 mg/dL (<100); Potassium 3.9 mmol/L (3.3-5.1); Sodium 139 mmol/L (135-145); Total Protein 7.9 g/dL (6.5-8.0); Triglycerides 191 mg/dL (<150)
[2023-04-26 03:56] LABS: HIV AB/AG Nonreactive (Nonreactive); HIV Num 1 0.04 S/CO (0.00-0.99); ~HepC Num1 0.05 S/CO (0.00-0.79); ~Hepatitis C Antibody Nonreactive (Nonreactive)
== END 2023-04-25 15:16 | disposition home or self-care (01) ==
LOC: HO.HHCL 15:15
PROVIDERS: Visit Provider Internal Medicine
DX: Z00.00 Encounter for general adult medical examination without abnormal findings (principal)
CPT/HCPCS: 36415; 80048; 80061; 80076; 83036; 86803; 87389

== ENCOUNTER 2023-06-04 14:54 | Outpatient (REF) | payer MEDICAID, SELFPAY ==
--- NOTE | ~2023-06-04 | XR_ITS ---
EXAMINATION: XR CHEST CLINICAL INFORMATION: Cough. COMPARISON: None available. TECHNIQUE: 2 views of the chest were obtained. FINDINGS: No significant abnormality is noted involving the heart, lungs, mediastinum, bony thorax or soft tissues. XR/XR chest 2V IMPRESSION: Unremarkable chest examination.
== END 2023-06-04 14:55 | disposition home or self-care (01) ==
LOC: HO.HHCX 14:54
PROVIDERS: Visit Provider Nurse Practitioner Primary Care
DX: R05.9 Cough, unspecified (principal)
CPT/HCPCS: 71046

== ENCOUNTER 2024-04-26 10:11 | Outpatient (REF) | payer MEDICAID, SELFPAY ==
[2024-04-26 11:25] LABS: MANUAL DIFF FLAG NO
[2024-04-26 11:36] LABS: Basophils Absolute Auto 0.1 X10*3/uL (0.0-0.2); Basophils Percent Auto 0.6 % (0-2); Eosinophils Absolute Auto 0.1 X10*3/uL (0.0-0.4); Eosinophils Percent Auto 1.2 % (0-4); Hematocrit 41.2 % (37.0-47.0); Hemoglobin 13.1 g/dl (12.0-16.0); Imm Gran Abs Auto 0.07 X10*3/uL (0.00-0.03); Imm Gran Pct Auto 0.8 % (0.0-0.4); Lymphocytes Absolute Auto 2.6 X10*3/uL (1.2-4.9); Mean Corpuscular HGB Conc 31.8 g/dl (31.0-35.0); Mean Corpuscular Hemoglobin 27.2 pg (27.0-33.0); Mean Corpuscular Volume 85.5 fL (80.0-98.0); Monocytes Absolute Auto 0.6 X10*3/uL (0.1-1.2); Monocytes Percent Auto 6.9 % (2-11); Neutrophils Absolute Auto 5.5 x10*3/uL (2.0-8.3); Neutrophils Percent Auto 61.5 % (45-73); Platelet Count 287 X10*3/uL (160-400); Red Blood Count 4.82 X10*6/uL (4.20-5.50); Red Cell Distribution Width 12.5 % (11.0-16.0)
[2024-04-26 11:45] LABS: Estimated Average Glucose 126 mg/dL; Hemoglobin A1C 144.4347 umol/L; Total Hemoglobin (HGBA1C) 3454.2394 umol/L
[2024-04-26 12:12] LABS: HIV AB/AG Nonreactive (Nonreactive); HIV Num 1 0.05 S/CO (0.00-0.99); ~HepC Num1 0.09 S/CO (0.00-0.79); ~Hepatitis C Antibody Nonreactive (Nonreactive)
[2024-04-26 12:16] LABS: Alanine Aminotransferase 25 U/L (0-31); Albumin Level 4.3 g/dL (3.5-5.0); Alkaline Phosphatase 63 U/L (39-117); Anion Gap 10 (12-20); Aspartate Amino Transferase 24 U/L (5-31); Bilirubin Total 0.3 mg/dL (0.0-1.0); Blood Urea Nitrogen 10 mg/dL (9-16); Carbon Dioxide 25 mmol/L (22-29); Chloride 106 mmol/L (96-108); Cholesterol 239 mg/dL (<200); Estimated Glomerular Filt Rate > 60; Glucose Random 115 mg/dL (60-115); HDL Cholesterol 43 mg/dL (>40); LDL Cholesterol Calculated 159 mg/dL (<100); Potassium 3.6 mmol/L (3.3-5.1); Sodium 137 mmol/L (135-145); Total Protein 7.7 g/dL (6.5-8.0); Triglycerides 188 mg/dL (<150)
[2024-04-26 12:33] LABS: TSH reflex Free T4 3.06 uIU/mL (0.32-4.0); Vitamin D 25-OH Total 14.8 ng/mL (>30)
== END 2024-04-26 10:12 | disposition home or self-care (01) ==
LOC: HO.HHCL 10:11
PROVIDERS: Visit Provider Internal Medicine
DX: Z00.00 Encounter for general adult medical examination without abnormal findings (principal)
CPT/HCPCS: 36415; 80053; 80061; 82306; 83036; 84443; 85025; 86803; 87389

== ENCOUNTER 2024-05-07 11:31 | Outpatient (REF) | payer MEDICAID, SELFPAY ==
[2024-05-10 10:43] LABS: RPR Rapid Plasma Reagin NON-REACTIVE (NON-REACTIVE)
== END 2024-05-07 11:32 | disposition home or self-care (01) ==
LOC: HO.HHCL 11:31
PROVIDERS: Visit Provider Family Medicine
DX: R21 Rash and other nonspecific skin eruption (principal)
CPT/HCPCS: 36415; 86592

== ENCOUNTER 2024-11-02 16:04 | Outpatient (REF) | payer MEDICAID, SELFPAY ==
[2024-11-02 16:23] LABS: Appearance Urine Cloudy; Color Urine Yellow; Glucose Urine UA Negative (Negative); Leukocyte Esterase Urine Moderate (2+) (Negative); Nitrite Urine Negative (Negative); PH 6.5 (5.0-9.0); UMIC TRIGGER UA YES; Urine Blood Trace (Negative); Urine Ketones Trace mg/dL (Negative); Urine Protein Trace mg/dL (Neg-Trace)
[2024-11-02 16:28] LABS: Bacteria Urine 4+ (None Seen); Hyaline Casts Urine 0-2 /LPF (0-2); Squamous Epithelial Cell Urine 0-2 /HPF (0-2); WBC Urine >50 /HPF (0-5)
== END 2024-11-02 16:05 | disposition home or self-care (01) ==
LOC: HO.HHCLNP 16:04
PROVIDERS: Visit Provider Family Medicine
DX: R30.0 Dysuria (principal); N11.1 Chronic obstructive pyelonephritis
CPT/HCPCS: 81001; 87086; 87088; 87186

== ENCOUNTER 2024-12-27 13:14 | Outpatient (REF) | payer MEDICAID, SELFPAY | END 2024-12-27 13:15 | disposition home or self-care (01) | LOC: HO.HHCLNP 13:14 | PROVIDERS: Visit Provider Internal Medicine | DX: R30.0 Dysuria (principal) | CPT/HCPCS: 87086 ==

== ENCOUNTER 2025-05-19 10:58 | Outpatient (REF) | payer MEDICAID, SELFPAY ==
[2025-05-19 12:58] LABS: MANUAL DIFF FLAG NO
[2025-05-19 13:11] LABS: Hematocrit 41.0 % (37.0-47.0); Hemoglobin 13.1 g/dl (12.0-16.0); Imm Gran Abs Auto 0.02 X10*3/uL (0.00-0.03); Imm Gran Pct Auto 0.4 % (0.0-0.4); Lymphocytes Absolute Auto 1.9 X10*3/uL (1.2-4.9); Mean Corpuscular HGB Conc 32.0 g/dl (31.0-35.0); Mean Corpuscular Hemoglobin 28.3 pg (27.0-33.0); Mean Corpuscular Volume 88.6 fL (80.0-98.0); NRBC Abs Auto 0.000 X10*3/uL (0.0-0.012); NRBC Pct Auto 0.0 /100WBC (0.0-0.2); Platelet Count 271 X10*3/uL (160-400); Red Blood Count 4.63 X10*6/uL (4.20-5.50); White Blood Count 5.6 X10*3/uL (4.8-10.8)
[2025-05-19 13:57] LABS: Folate 9.0 ng/mL (> or = 4.0); Vitamin B12 340 pg/mL (200-900)
[2025-05-19 14:16] LABS: Alanine Aminotransferase 18 U/L (0-31); Albumin Level 4.6 g/dL (3.5-5.0); Alkaline Phosphatase 52 U/L (39-117); Anion Gap 9 (12-20); Aspartate Amino Transferase 21 U/L (5-31); Blood Urea Nitrogen 9 mg/dL (9-16); Calcium 8.7 mg/dL (8.4-10.2); Carbon Dioxide 26 mmol/L (22-29); Chloride 108 mmol/L (96-108); Cholesterol 214 mg/dL (<200); Estimated Glomerular Filt Rate > 60; HDL Cholesterol 56 mg/dL (>40); Potassium 4.0 mmol/L (3.3-5.1); Sodium 139 mmol/L (135-145); Total Protein 7.6 g/dL (6.5-8.0); Triglycerides 85 mg/dL (<150)
--- OUTSIDE RECORDS SUMMARY | 2025-05-19 16:41 | XMS_ITS | Encounter Summary ---
Author Organization [employer] Address [address] [place] [address] Care Team Providers Care [employer] Name Role Phone Miriam Petty MD Primary Care Provide r Reason for Visit * Reason Onset Date Comments Med Refill 10/22/2024 Encounter Details Date Type Department Care Team (Late st Contact Info) Description 10/22/2024 Refill [facility] [address] [place] [address] Miriam Petty MD [address] [place] [address] Social History Tobacco Use Types Packs/Day Years Used Date Smoking Tobacco: Never Passive Smoke Exposure: Never Smokeless Tobacco: Never Alcohol Use Standard Drinks/Week Comments Never 0 (1 standard drink = 0.6 oz pur e alcohol) Depression Answer Date Recorded Patient Health Questionnaire-9 Score 23 07/18/2023 Patient Health Questionnaire-9 Score 23 07/18/2023 Last PHQ-9: Questionnaire Data Not on file 0 07/18/2023 Housing Stability Answer Date Recorded What is your housing situation today? I have areli koch 04/23/[address] you li ve. Do you have problems with any of the following? None of the above 04/23/2023 Food Insecurity Answer Date Recorded Within the past 12 months, y ou worried that your food would run out before you got money to buy more: Never True 04/23/2023 Within the past 12 months,th e food you bought just didn't last and you didn't have enough money to get more: Never True Transportation Answer Date Recorded In the past 12 months, has l ack of transportation kept you from medical appts, meetings, work or from getting things needed for daily living? No 04/23/2023 Utilities Answer Date Recorded In the past 12 months, has t he electric, gas, oil or water company threatened to shut off services in your home? No 04/19/2024 Depression Answer Date Recorded Patient Health Questionnaire-2 Score 5 07/18/2023 Internet Access Answer Date Recorded Internet Access Q1 Yes 04/19/2024 Internet Access Q2 Not on file 04/19/2024 Comments Unknown Sex and Gender Information Value Date Recorded Sex Assigned at Female 04/29/2022 10:16 AM EDT Legal Sex Female 10:16 AM EDT Gender Identity Female 04/29/2022 10:16 AM EDT Sexual Orientation Straight 04/29/2022 10 :16 AM EDT documented as of this encounter Plan of Treatment Upcoming Encounters Date Type Department Care Team (Late st Contact Info) Description 07/05/2025 2:30 PM EST Office Visit [facility] [address] [place] [address] Miriam Petty MD [address] [place] [address] 08/23/2025 2:00 PM EST Office Visit [facility] [address] [place] [address] TarkaAfsaneh, OD [address] [place] [address] documented as of this encounter Visit Diagnoses Not on filedocumented in this encounter Additional Health Concerns Assessment Noted Time PHQ-9 Depression Total Score: 23 024 1:29 PM EST documented as of this encounter Care Teams [employer] Relationship Specialty Start Date End Date Miriam Petty MD [address] [place] [address] PCP - General Family Medicine 07/24/18 documented as of this encounter
--- OUTSIDE RECORDS SUMMARY | 2025-05-19 16:41 | XMS_ITS | Clinical Summary ---
Author Organization [employer] Address [address] [facility] [address] [place] [address] Care Team Providers Care Matrix Bath Operator Name Role Phone Miriam Petty MD Primary Care Provide r Allergies Active Allergy Reactions Criticality Noted Date Comments Banana 04/26/2024 Marcial 04/26/2024 Rock Flavoring Agent (Non-Screening) 04/26/2024 Pistachio Nut (Diagnostic) Medications * This document contains information received from the source organization and may not represent a complete record from that organization. ketoconazole (Nizoral) 2 % shampooIndicat ions:Seborrhei c dermatitis Apply topically 2 (two) times a week. 120 mL 1 023 Active albuterol 108 (90 Base) MCG/ACT inhalerIndicat ions:Cough in adult patient Inhale 2 puffs every 6 (six) hours if needed for wheezing or shortness of breath. 18 g 023 Active diphenhydrAMIN E (BENADryl) 25 MG tabletIndicati ons:Rash Take 1 tab po at bedtime prn itching 30 tablet 024 Active hydrocortisone (Anusol-HC) 2.5 % rectal creamIndicatio ns:Hemorrhoids , unspecified hemorrhoid type Insert into the rectum 2 times daily. 28 g 025 Active docusate sodium (Colace) 100 MG capsule TAKE 1 CAPSULE BY MOUTH TWICE A DAY 60 capsule 025 Active hydrocortisone 2.5 % creamIndicatio ns:Seborrheic dermatitis Apply topically 2 times daily. 20 g 025 Active Zepbound 10 MG/0.5ML solution auto-injector INJECT ONE PEN (=10MG) SUBCUTANEOUSLY ONCE A WEEK DIRECTED 2 mL 025 Active Tirzepatide-We ight Management (Zepbound) 10 MG/0.5ML solution auto-injectorI ndications:Ove rwdaniellaght (BMI 25.0-29.9) Inject 0.5 mL (10 mg) under the skin 1 (one) time per week. 2 mL 3 025 Active Tirzepatide-We ight Management (Zepbound) 7.5 MG/0.5ML solution auto-injectorI ndications:Cla ss 2 obesity due to excess calories without serious comorbidity with body mass index (BMI) of 35.0 to 35.9 in adult Inject 0.5 mL (7.5 mg) under the skin 1 (one) time per week. 2 mL 025 2024 Discontinued Tirzepatide-We ight Management (Zepbound) 12.5 MG/0.5ML solution auto-injectorI ndications:Cla ss 2 obesity due to excess calories without serious comorbidity in adult, unspecified BMI Inject 0.5 mL (12.5 mg) under the skin every 7 (seven) days. 2 mL 025 2024 Discontinued Active Problems Problem Noted Date Diagnosed Date Overweight (BMI 25.0-29.9) 05/02/2025 Recurrent UTI 01/03/2025 Assessment & Plan (01/03/2025 5:47 PM EDT): Patient referred to urology Constipation 01/03/2025 Assessment & Plan (01/03/2025 5:47 PM EDT): Counseling done and advised more water and fiber in her diet and increase physical activity I will prescribe her today MiraLAX Acute cystitis with hematuria 12/27/2024 Assessment & Plan (12/27/2024 11:27 AM EDT): Advised regarding increase water intake, cranberry juice Rx Bactrim DS twice daily x 5 days Follow-up urine culture results We discussed about having postcoital voiding and hygiene of the vulvar area. Pyelonephritis 11/02/2024 Assessment & Plan (11/02/2024 10:19 AM EDT): Exam concerning for early pyelonephritis. Vitals stable. -ciprofloxacin 50mg bid for 7 days started 11/02/24, risks and benefits discussed -UA and culture sent -ibuprofen prn for pain, advise increase fluid intake -ER precautions discussed -declines work note but will call if she is not ready for work by the weekend -she agrees with the plan Other constipation 07/15/2024 Hemorrhoids 07/15/2024 Dermatitis 05/25/2024 Rash 05/07/2024 Assessment & Plan (05/07/2024 11:22 AM EST): Appears viral. Rash is blanching. Labs done yesterday 05/06/24 without acute findings to explain rash. -ordered additional RPR 05/07/24 -prescribed diphenhydrAMINE (BENADryl) 25 MG tablet -recommended not taking hot showers, not itching the rash and avoiding scented products. -advised OTC unscented lotions and soaps. -discussed ER and return precautions Vitamin D deficiency 05/07/2024 Assessment & Plan (05/07/2024 11:18 AM EST): -Start ergocalciferol (Vitamin D2) 1.25 MG (12051 UT) capsule 05/07/24 Encounter for screening mamm ogram for malignant neoplasm of breast 04/26/2024 Severe episode of recurrent major depressive disorder, with psychotic features (CMS/HCC) 07/18/2023 Severe anxiety 07/18/2023 Encounter for preventive care 04/25/2023 Assessment & Plan (05/02/2025 1:14 PM EST): See HPI Assessment & Plan (04/26/2024 10:48 AM EDT): See HPI Assessment & Plan (04/25/2023 4:29 PM EDT): See HPI Vertigo 04/25/2023 Class 2 obesity due to exces s calories without serious comorbidity in adult 04/25/2023 Assessment & Plan (01/03/2025 5:47 PM EDT): Counseling done regarding healthy diet and exercise Continue with Zepbound 12.5 mg weekly Assessment & Plan (09/02/2024 2:14 PM EST): Extensive counseling about healthy diet, portion control and cardiovascular exercise on today I will go up on Zepbound to 7.5 mg weekly, next refill dose will go up automatically at this point Assessment & Plan (04/25/2023 4:29 PM EDT): Today extensive discussion was done about life style modifications I advise healthy diet (low calorie) and cardiovascular exercise Prediabetes 04/25/2023 Assessment & Plan (04/26/2024 10:48 AM EDT): Today extensive discussion was done about life style modifications I advise healthy diet (low calorie) and cardiovascular exercise Obesity 04/23/2023 04/23/2023 Assessment & Plan (04/26/2024 10:48 AM EDT): Counseling done I will start patient on wegovy I will refer patient to bariatric program RTC 4 weeks Fatigue 04/23/2023 04/23/2023 Dizziness 04/23/2023 04/23/2023 Chest pain 04/23/2023 04/23/2023 Costal chondritis 04/23/2023 04/23/2023 Abnormal uterine bleeding 09/18/2022 Chronic low back pain 09/18/2022 Cyst of ovary 09/18/2022 Hypertensive disorder 09/18/2022 Assessment & Plan (04/26/2024 10:47 AM EDT): I advise low Na diet and weight reduction continue to monitor BP and report back if ti has being persistently over 140/90mmhg Bipolar disorder, current ep isode depressed, severe (CMS/HCC) 09/18/2022 Assessment & Plan (07/21/2023 8:27 AM EST): PROGRESS NOTE: ID: Abi is a 38 y.o. White straight-identified cis-female (pronouns ) with previous documented hx of Mood Disorder self reported history of Depression, Anxiety, Bipolar Disorder , and Trauma services including OP Psychotherapy psychopharmacology who presents for Anxiety, Depression, and Bipolar. During IBH Consult Abi presenting with depressed mood, loss of interests/pleasure , changes in sleep difficulty falling asleep and restless, unsatisfying sleep, change in appetite or weight overeating, psychomotor agitation, trouble concentrating, fatigue/loss of energy, worthlessness , excessive worry/anxiety, difficulty controlling worry, restless/keyed up/On edge, easily fatigued, difficulty concentrating/Mind going blank , irritability, muscle tension, and sleep disturbance difficulty falling asleep and restless, unsatisfying sleep, and Pattern of unstable and intense interpersonal relationships, Impulsivity, Affective instability, Feelings of emptiness, Intense anger, and Other: racing thoughts, rapid speech, trouble concentrating, increase goal directed, Hx of bipolar disorder in family, and has been previously diagnose.; for a period of 18+ mo, for all symptoms in the context of soon to be from her , financial concern due to not having a job, possibility of losing her apartment, lack of resources and social support. PLAN: New/Additional Services needed Off-site services for , Behavioral Health Integration Plan External OP therapy referral and OP psychiatry Referral, Patient Self Plan Patient to utilize skills provided in intervention , Patient to reach out to [facility] team as needed, and Patient to reach out to [facility] as needed. Assessment & Plan (04/25/2023 4:30 PM EDT): Counseling done [facility] referral Lower urinary tract symptoms 11/17/2018 Encounters Date Type Department Care Team Description 05/09/2025 Telephone [facility] [address] [place] [address] Miraim Petty MD 05/06/2025 Telephone [facility] [address] [place] [address] Miriam Petty MD Prior Authorization ( PA: Nicole) 05/02/2025 10:15 AM EST Office Visit [facility] [address] [place] [phone] Miriam Petty MD Encounter for preventive care (Primary Dx); Prediabetes; Overweight (BMI 25.0-29.9); Encounter for screening mammogram for malignant neoplasm of breast; Dietary counseling; Exercise counseling; Overweight; Bipolar disorder, current episode depressed, severe, with psychotic features (CMS/HCC) (HCC) 05/02/2025 Travel 04/30/2025 Travel 04/29/2025 Telephone [facility] [address] [place] [phone] Miriam Petty MD Chart Prep 04/25/2025 Patient Outreach [facility] [address] [place] [address] Miriam Petty MD Pre-visit Planning ([facility] unable to reach [facility] ) 04/22/2025 Telephone [facility] [address] [place] [phone] Miriam Petty MD adrian recall 04/15/2025 Refill [facility] [address] [place] [phone] Miriam Petty MD 04/12/2025 Refill [facility] [address] [place] [address] Miriam Petty MD 03/16/2025 Refill [facility] [address] [place] [address] Miriam Petty MD 02/16/2025 Refill [facility] [address] [place] [address] Miriam Petty MD from Last 3 Months Immunizations Immunization Administration Dates Next Due Influenza injectable quadrivalent preservative f ree 05/12/2019 Influenza, seasonal, injectable, preservative fr ee 06/03/2012 Tdap 05/12/2019 Social History Tobacco Use Types Packs/Day Years Used Date Smoking Tobacco: Never Passive Smoke Exposure: Never Smokeless Tobacco: Never Tobacco Cessation:Counseling Given: Not Answered Alcohol Use Standard Drinks/Week Comments Never 0 (1 standard drink = 0.6 oz pur e alcohol) Depression Answer Date Recorded Patient Health Questionnaire-9 Score 07/18/2023 Patient Health Questionnaire-9 Score 07/18/2023 Last PHQ-9: Questionnaire Data Not on [...] Answer Date Recorded Patient Health Questionnaire-2 Score 0 01/03/2025 Internet Access Answer Date Recorded Internet Access Q1 Yes 04/19/2024 Internet Access Q2 Not on file 04/19/2024 Comments No Sex and Gender Information Value Date Recorded Sex Assigned at Female 04/29/2022 10:16 AM EDT Legal Sex Female 10:16 AM EDT Gender Identity Female 04/29/2022 10:16 AM EDT Sexual Orientation Straight 04/29/2022 10 :16 AM EDT Last Filed Vital Signs Vital Sign Reading Time Taken Comments Blood Pressure 124/76 05/02/2025 10:23 AM EST Pulse 87 05/02/2025 10:23 AM EST Temperature 34.9 C (94.9 F) 05/02/2025 10:23 AM EST Respiratory Rate 24 05/02/2025 10:23 AM EST Oxygen Saturation 98% 05/02/2025 10:23 AM EST Inhaled Oxygen Concentration - - Weight 79.1 kg (174 lb 6.4 oz) 05/02/2025 10:23 AM EST Height 162.6 cm (5' 4 ) 05/02/2025 10:23 AM EST Body Mass Index 29.94 05/02/2025 10:23 AM EST Plan of Treatment Upcoming Encounters Date Type Department Care Team (Late st Contact Info) Description 07/05/2025 2:30 PM EST Office Visit [facility] [address] [place] [phone] Miriam Petty MD [address] [place] [address] 08/23/2025 2:00 PM EST Office Visit [facility] [address] [place], [place] [phone] Afsaneh Kraft, OD [address] [place], [place] [phone] Health Maintenance Due Date Last Done Comments Family Planning (PISQ) 01/08/1999 HPV Vaccines (1 - 3-dose series) 01/08/1999 Hepatitis B Vaccines (1 of 3 - 19+ 3-dose series) 01/08/2003 Mammogram 2024 COVID-19 Vaccine ( season) 2025 09/04/2021, 12/25/2020, 11/06/2020 Influenza Vaccine (#1) 2025 05/12/2019, 2011 Depression Monitoring 07/06/2025 01/03/2025, 024 SDOH Screening 12/24/2025 12/24/2024 Alcohol/Substance Use Screening 01/03/2026 01/03/2025 Disability Screening 05/02/2026 05/02/2025 Tobacco Screening 05/02/2026 05/02/2025 Diabetes: Hemoglobin A1C 05/19/2026 025, 05/02/2025, 04/26/2024, Additional history exists DTaP/Tdap/Td Vaccines (2 - Td or Tdap) 05/12/2029 05/12/2019 Lipid Panel 05/19/2030 05/19/2025, 03/31, 04/25/2023, Additional history exists Zoster Vaccines (1 of 2) 01/08/2034 RSV Patients and Patients Aged 60 years or older (1 - 1-dose 75+ series) 01/08/2059 HIV Screening Completed 04/26/2024, 04/25/2023 Hepatitis C Screening Completed 04/26/2024, 023 HIB Vaccines Aged Out No longer eligi ble based on patient's age to complete this topic Hepatitis A Vaccines Aged Out No long er eligible based on patient's age to complete this topic IPV Vaccines Aged Out No longer eligi ble based on patient's age to complete this topic Meningococcal B Vaccine Aged Out No l onger eligible based on patient's age to complete this topic Meningococcal Vaccine Aged Out No jaspreet kavya eligible based on patient's age to complete this topic Pneumococcal Vaccine: Pediatrics (0 to 5 Years) and At-Risk Patients (6 to 49) Years Aged Out No longer eligible based on patient's age to complete this topic RSV under 20 months Aged Out No longe r eligible based on patient's age to complete this topic Rotavirus Vaccines Aged Out No longer eligible based on patient's age to complete this topic Procedures Procedure Name Priority Date/Time Associated Diagnosis Comments VITAMIN B12/FOLATE, SERUM PANEL Routine 05/19/2025 11:17 AM EST Encounter for preventive care TSH W/REFLEX TO FT4 Routine 05/19/2025 1 1:17 AM EST Encounter for preventive care VITAMIN D,25-OH,TOTAL,IA Routine 05/19/2025 11:17 AM EST Encounter for preventive care LIPID PANEL, STANDARD Routine 05/19/2025 11:17 AM EST Encounter for preventive care HEMOGLOBIN A1C Routine 05/19/2025 11:17 AM EST Encounter for preventive care COMPREHENSIVE METABOLIC PANEL Routine 05/19/2025 11:17 AM EST Encounter for preventive care CBC WITH AUTO DIFFERENTIAL Routine 05/19/2025 11:17 AM EST Encounter for preventive care POCT GLYCATED HEMOGLOBIN, TOTAL Routine 05/02/2025 10:32 AM EST Prediabetes HEPATITIS C AB W/REFL TO HCV RNA, QN, PCR Routine 04/26/2024 10:15 AM EDT Encounter for preventive care HIV 1/2 ANTIGEN/ANTIBODY, FOURTH GENERATION W/RFL Routine 04/26/2024 10:15 AM EDT Encounter for preventive care from Last 3 Months or Most Recently Relevant to Health Maintenance Results * (ABNORMAL) Vitamin D, 25-Hydroxy, Total, Immunoassay (05/19/2025 11:17 AM EST) Vitamin D 25-OH Total 18.9(L) >30 ng/mL [facility] Comment: Health Based Reference Values*< 20 ng/mL Kcgodtsnd06-70 ng/mL Insufficient> 30 ng/mL Sufficient*Jina IRIZARRY. N Engl J Med. 2007;357:266-280There is no well-established upper level of normal vitamin Dlevels. Some laboratories use 50 ng/mL as an upper limit ofnormal. However, toxicity is patient-dependent and may occurat any level. Careful correlation with the patient'spresentation is necessary and, if there is concern forvitamin D toxicity, treatment should be consideredirrespective of the serum level.Care must be taken in interpreting Vitamin D results fromdifferent laboratories and methodologies. Published datademonstrated that results from patients undergoinghemodialysis may show a negative bias when tested withvarious automated 25-OH vitamin D assays when compared toLC-MS/MS.When testing samples from patients whose predominant form ofVitamin D is Vitamin D2, such as patients receiving VitaminD2 supplementation, results that are subtherapeutic shouldbe confirmed with another method such as LC-MS/MS. Blood Venous blood specimen / Unknown 05/19/2025 11:17 AM EST 05/19/2025 12:50 PM EST us Miriam Wetzel MD LAB BLOOD ORDERABLES Final Result [facility] [address] [place] [phone] * Vitamin B12/Folate, Serum Panel (05/19/2025 11:17 AM EST) Vitamin B12 340 200 - 900 pg/mL [facility] Comment:NORMAL 200-900 PG/ML INDETERMINATE 160-199 PG/ML DEFICIENT < 160 PG/ML Folate 9.0 > or = 4.0 ng/mL [facility] Comment:Reference Values:> o r = 4.0 ng/mL< 4.0 ng/mL suggests folate deficiency Methotrexate, aminopterin and folinic acid(leucovorin) are chemotherapeutic agents whose molecularstructures are similar to folate; therefore, the Architectfolate assay cannot be used for patients using these drugs. Blood Venous blood specimen / Unknown 05/19/2025 11:17 AM EST 05/19/2025 12:50 PM EST us Miriam Wetzel MD LAB BLOOD ORDERABLES Final Result [facility] [address] [place] [phone] [phone] * TSH with Reflex to Free T4 (05/19/2025 11:17 AM EST) Pathologist [facility] TSH reflex Free T4 1.05 0.32 - 4.0 uIU/mL [facility] Blood Venous blood specimen / Unknown 05/19/2025 11:17 AM EST 05/19/2025 12:50 PM EST us Miriam Wetzel MD LAB BLOOD ORDERABLES Final Result [facility] [address] [place] [address] [phone] * CBC auto differential (05/19/2025 11:17 AM EST) White Blood Count 5.6 4.8 - 10.8 X10*3/uL [facility] Red Blood Count 4.63 4.20 - 5.50 X10*6/uL [facility] Hemoglobin 13.1 12.0 - 16.0 g/dl [facility] Hematocrit 41.0 37.0 - 47.0 % [facility] Mean Corpuscular Volume 88.6 80.0 - 98.0 fL [facility] Mean Corpuscular Hemoglobin 28.3 27.0 - 33.0 pg [facility] Mean Corpuscular HGB Conc 32.0 31.0 - 35.0 g/dl [facility] Red Cell Distribution Width 12.0 11.0 - 16.0 % [facility] Platelet Count 271 160 - 400 X10*3/uL [facility] Mean Platelet Volume 10.2 9.4 - 12.3 fL [facility] Neutrophils Percent Auto 55.7 45 - 73 % [facility] Imm Gran Pct Auto 0.4 0.0 - 0.4 % [facility] Lymphocytes Percent Auto 33.0 20 - 40 % [facility] Monocytes Percent Auto 9.1 2 - 11 % [facility] Eosinophils Percent Auto 1.1 0 - 4 % [facility] Basophils Percent Auto 0.7 0 - 2 % [facility] NRBC Pct Auto 0.0 0.0 - 0.2 /100WBC [facility] Neutrophils Absolute Auto 3.1 2.0 - 8.3 x10*3/uL [facility] Imm Gran Abs Auto 0.02 0.00 - 0.03 X10*3/uL [facility] Lymphocytes Absolute Auto 1.9 1.2 - 4.9 X10*3/uL [facility] Monocytes Absolute Auto 0.5 0.1 - 1.2 X10*3/uL [facility] Eosinophils Absolute Auto 0.1 0.0 - 0.4 X10*3/uL [facility] Basophils Absolute Auto 0.0 0.0 - 0.2 X10*3/uL [facility] NRBC Abs Auto 0.000 0.0 - 0.012 X10*3/uL [facility] Blood Venous blood specimen / Unknown 05/19/2025 11:17 AM EST 05/19/2025 12:50 PM EST us Miriam Wetzel MD LAB BLOOD ORDERABLES Final Result Performing Organization Address [facility] Phone Number [facility] [address] [place] [phone] * Hemoglobin A1c (05/19/2025 11:17 AM EST) Hemoglobin A1c 5.2 <6.0 % [facility] Comment:Hemoglobin A1C Refer ence Range Adults: 4.8 - 6.0 % Non diabetic: < 6.0 % Goal: < 7.0 %Additional Action Suggested: > 8.0 %Note: Hemoglobin A1c results are invalid for patients with abnormal amounts of HbF. Blood transfusions may impact the HbA1c concentration in the patient sample. Estimated Average Glucose 103 mg/dL [facility] Comment:eAG = Estimated ave rage glucose which is %A1C expressed asaverage glucose, using the formula of the [id number] Glucose study (ADAG), Diabetes Care, Vol.31,#8,2007 Blood Venous blood specimen / Unknown 05/19/2025 11:17 AM EST 05/19/2025 12:50 PM EST us Miriam Wetzel MD LAB BLOOD ORDERABLES Final Result Performing Organization Address [facility] Co de Phone Number [facility] [address] [place] [phone] * (ABNORMAL) Lipid Panel, Standard (05/19/2025 11:17 AM EST) Triglycerides 85 <150 mg/dL [facility] Comment:Desirable Triglyceri de: less than 150 mg/dLBorderline High Triglyceride 150-199 mg/dLHigh Triglyceride: 200-499 mg/dLVery High Triglyceride: greater than or equal to 5OO mg/dL Cholesterol 214(H) <200 mg/dL [facility] Comment:Desirable Cholestero l: less than 200 mg/dLBorderline High Cholesterol: 200-239 mg/dLHigh Cholesterol: greater than 239 mg/dL LDL Cholesterol Calculated 141(H) <100 mg/dL [facility] Comment:Desirable LDL: less than 100 mg/dLNear Optimal/Above Optimal LDL: 110- 129 mg/dLBorderline High LDL: 130-159 mg/dLHigh LDL: 160-189 mg/dLVery High LDL: greater than or equal to 190 mg/dL HDL Cholesterol 56 >40 mg/dL [facility] Comment:Desirable HDL: grea ter than 40 mg/dL Note: This HDL assay may give artificially low results in patients with liver disease. Blood Venous blood specimen / Unknown 05/19/2025 11:17 AM EST 05/19/2025 12:50 PM EST Miriam Wetzel MD LAB BLOOD ORDERABLES Final Result [facility] [address] [place] [phone] * (ABNORMAL) Comprehensive Metabolic Panel (05/19/2025 11:17 AM EST) Sodium 139 135 - 145 mmol/L [facility] Potassium 4.0 3.3 - 5.1 mmol/L [facility] Chloride 108 96 - 108 mmol/L [facility] Carbon Dioxide 26 22 - 29 mmol/L [facility] Anion Gap 9(L) 12 - 20 [facility] Urea Nitrogen (BUN) 9 9 - 16 mg/dL [facility] Creatinine, Serum 0.63 0.5 - 1.4 mg/dL [facility] Estimated Glomerular Filt Rate >60 [facility] Comment:Chronic Kidney Disea se: Estimated GFR < 60 mL/min/1.58p0Cgzqmh Kidney Disease: Estimated GFR < 15 mL/min/1.73m2 Glucose 87 60 - 115 mg/dL [facility] Calcium 8.7 8.4 - 10.2 mg/dL [facility] Bilirubin, Total 0.3 0.0 - 1.0 mg/dL [facility] Aspartate Amino Transferase 21 5 - 31 U/L [facility] Alanine Aminotransferase 18 0 - 31 U/L [facility] Total Protein 7.6 6.5 - 8.0 g/dL [facility] Albumin Level 4.6 3.5 - 5.0 g/dL [facility] Alkaline Phosphatase 52 39 - 117 U/L [facility] Blood Venous blood specimen / Unknown 05/19/2025 11:17 AM EST 05/19/2025 12:50 PM EST us Miriam Wetzel MD LAB BLOOD ORDERABLES Final Result Performing Organization Address [facility] Co de Phone Number [facility] [address] [place] [phone] * POCT Hgb A1c (05/02/2025 10:32 AM EST) Hemoglobin A1C 5.4 4.0 - 5.7 % QC Media Lot # [id number] Lot# Expiration Date Blood 05/02/2025 10:3 2 AM EST us Miriam Wetzel MD POINT OF CARE TEST EN TER/EDIT ORDERABLES Final Result * Hepatitis C Antibody with Reflex to HCV, RNA, Quantitative, Real-Time PCR (04/26/2024 10:15 AM EDT) Hepatitis C Antibody Nonreactive Nonreactive [facility] Comment:Antibodies to HCV no t detected; does not exclude early acuteHCV infection. Blood Venous blood specimen / Unknown 04/26/2024 10:15 AM EDT 04/26/2024 11:10 AM EDT us Miriam Wetzel MD LAB BLOOD ORDERABLES Final Result Performing Organization Address City/[facility]/ZIP Co de Phone Number [facility] [address] [place] [address] [place] [phone] * HIV-1/2 Antigen and Antibodies, Fourth Generation, with Reflexes (04/26/2024 10:15 AM EDT) HIV AB/AG Nonreactive Nonreactive [facility] Comment:HIV-1 p24 Ag and/or HIV-1/HIV-2 Ab not detected.A test result that is nonreactive does not exclude thepossibility of exposure to or infection with HIV-1 and/orHIV-2. Nonreactive results in this assay for individualswith prior exposure to HIV-1 and/or HIV-2 may be due toantigen and antibody levels that are below the limit ofdetection of this assay.The [employer] HIV Ag/Ab Combo assay result andsupplemental assay results should be interpreted inconjunction with the patient's clinical presentation,history and other laboratory results. If the results areinconsistent with clinical evidence, additional testing issuggested to confirm the result. Blood Venous blood specimen / Unknown 04/26/2024 10:15 AM EDT 04/26/2024 11:10 AM EDT us Miriam Wetzel MD LAB BLOOD ORDERABLES Final Result [facility] [address] [place] [address] [phone] from Last 3 Months or Most Recently Relevant to Health Maintenance Insurance [employer] C3 Care Teams Matrix Bath Operator Relationship Specialty Start Date End Date Miriam Petty MD [address] [place] [id number] PCP - General Family Medicine 07/24/18
--- OUTSIDE RECORDS SUMMARY | 2025-05-19 16:41 | XMS_ITS | Encounter Summary ---
Author Organization [employer] Address [address] [facility] [address] [place] [address] Care Team Providers Care Oriental Rug Stretcher Name Role Phone Miriam Petty MD Primary Care Provide r Reason for Visit * Reason Onset Date Comments Med Refill 11/06/2024 Encounter Details Date Type Department Care Team (Late st Contact Info) Description 11/06/2024 Refill [facility] [address] [place] [address] Miriam Petty MD [address] [place] [address] Social History Tobacco Use Types Packs/Day Years [...] Description 07/05/2025 2:30 PM EST Office Visit [facility] [address] [place] [address] Miriam Petty MD [address] [place] [address] 08/23/2025 2:00 PM EST Office Visit [facility] [address] [place] [address] TarkaAfsaneh, OD [address] [place] [address] documented as of this encounter Visit Diagnoses Not on filedocumented in this encounter Additional Health Concerns Assessment Noted Time PHQ-9 Depression Total Score: 23 024 1:29 PM EST documented as of this encounter Care Teams Oriental Rug Stretcher Relationship Specialty Start Date End Date Miriam Petty MD [address] [place] [address] PCP - General Family Medicine 07/24/18 documented as of this encounter
--- OUTSIDE RECORDS SUMMARY | 2025-05-19 16:41 | XMS_ITS | Encounter Summary ---
Author Organization [employer] Address [address] [facility] [address] [place] [address] Care Team Providers Care Bisque Placer Name Role Phone Miriam Petty MD Primary Care Provide r Reason for Visit * Reason Onset Date Comments Med Refill 04/15/2025 Encounter Details Date Type Department Care Team ([facility] st Contact Info) Description 04/15/2025 Refill [facility] [address] [place] [address] Miriam Petty MD [address] [place] [address] Social History Tobacco Use Types Packs/Day Years [...] Description 07/05/2025 2:30 PM EST Office Visit [facility] [address] [place] [address] Miriam Petty MD [address] [place] [address] 08/23/2025 2:00 PM EST Office Visit [facility] [address] [place] [address] TarkaAfsaneh, OD [address] [place] [address] documented as of this encounter Visit Diagnoses Not on filedocumented in this encounter Additional Health Concerns Assessment Noted Time PHQ-9 Depression Total Score: 23 024 1:29 PM EST documented as of this encounter Care Teams Bisque Placer Relationship Specialty Start Date End Date Miriam Petty MD [address] [place] [address] PCP - General Family Medicine 07/24/18 documented as of this encounter
[2025-05-20 08:43] LABS: HIV Num 1 0.06 S/CO (0.00-0.99); ~HepC Num1 0.11 S/CO (0.00-0.79); ~Hepatitis C Antibody Nonreactive (Nonreactive)
== END 2025-05-19 10:59 | disposition home or self-care (01) ==
LOC: HO.HHCL 10:58
PROVIDERS: PCP Internal Medicine; Visit Provider Internal Medicine
DX: Z00.00 Encounter for general adult medical examination without abnormal findings (principal); Z11.4 Encounter for screening for human immunodeficiency virus [HIV]; Z11.59 Encounter for screening for other viral diseases
CPT/HCPCS: 36415; 80053; 80061; 82306; 82607; 82746; 83036; 84443; 85025; 86592; 86803; 87389